=== PATIENT | male | born 1970 | race American Indian/Alaskan Native ===

== ENCOUNTER 2017-12-09 22:16 | Inpatient (IN) | payer SELFPAY ==
[2017-12-09] MEDS ORDERED: BOOSTRIX IM ONE (22:36)
[2017-12-09] MEDS ORDERED: KEPPRA 1,000 MG/NS 0.75% 100ML 1,000 MG/100 ML BAG IV ONE (22:36)
[2017-12-09] MEDS ORDERED: NACL 0.9% 1000 ML 2,000 ML IV ONE (22:36)
[2017-12-09 23:17] LABS: BUN/Creatinine Ratio 6; Blood Urea Nitrogen 5 mg/dL (9-20); Calcium 9.7 mg/dL (8.4-10.2); Hemolysis Index 1
[2017-12-09 23:20] LABS: Basophils % (Auto) 0.2 % (0.0-1.8); Hematocrit 36.3 % (35.5-45.6); Hemoglobin 12.9 gm/dl (11.8-15.2); Lymphocytes # (Auto) 0.4 K/mm3 (1.2-5.4); Lymphocytes % (Auto) 3.6 % (13.4-35.0); Mean Corpuscular HGB Conc 36 % (32-34); Mean Corpuscular Hemoglobin 34 pg (28-32); Mean Corpuscular Volume 96 fl (84-94); Monocytes # (Auto) 0.6 K/mm3 (0.0-0.8); Monocytes % (Auto) 6.2 % (0.0-7.3); Red Blood Count 3.78 M/mm3 (3.65-5.03); Red Cell Distribution Width 13.3 % (13.2-15.2)
--- NOTE | 2017-12-09 23:21 | Cat Scan Report ---
FINAL REPORT PROCEDURE: CT HEAD/BRAIN WO CON TECHNIQUE: Computerized tomography of the head was performed without contrast material. HISTORY: seizure COMPARISON: 01/07/2015 FINDINGS: Skull and scalp: Normal. Paranasal sinuses: Normal. Ventricles and subarachnoid spaces: Normal. Cerebrum: No evidence of hemorrhage, acute infarction or mass . Cerebellum and brainstem: No evidence of hemorrhage, acute infarction or mass. Vasculature: Normal. Comments: None. IMPRESSION: Normal Examination
[2017-12-09 23:27] LABS: Platelet Count 90 K/mm3 (140-440)
[2017-12-09] MEDS ORDERED: K-DUR PO ONE (23:32)
[2017-12-09] MEDS ORDERED: MAG-OX PO STA (23:32)
[2017-12-09] MEDS ORDERED: MAGNESIUM SULFATE 2GM/50ML 2 GM/50 ML BAG IV ONE (23:32)
--- NOTE | 2017-12-09 23:39 | Emergency Department Report ---
ED Seizure HPI - General Chief Complaint: Seizure Stated Complaint: SEIZURE Time Seen by Provider: 12/09/17 22:24 Source: patient, EMS (ems notes not available at time of chart dictation), RN notes reviewed, old records reviewed Mode of arrival: Stretcher Limitations: No Limitations - History of Present Illness Initial Comments: This is a 47-year-old male who is unknown to this provider previously. Has a history of seizure disorder, reports taking Keppra, 750 mg "every now and then. " He reports sporadic compliance with his antiepileptic drugs. He is brought to the hospital today by EMS for apparent seizure at a store. Prior to the seizure, patient indicates he had a mild throbbing headache, which was global, not sudden or thunderclap in nature, and did not reach maximal intensity within one hour. He believes that he bit his tongue. He reports his last seizure was 9 months ago. He denies neck pain, chest pain, abdominal pain, shortness of breath, urinary symptoms. Seizure was sudden, now resolved, did not radiate anywhere, thinks it was global tonic-clonic, and did not have exacerbating or relieving factors. MD Complaint: seizure, shaking, other (tongue biting) -: Sudden Description of Episode: loss of consciousness, tonic-clonic movement, post- event confusion -: second(s) Witnessed:: No Trauma: Yes Seizure History: known seizure disorder Place: street/outdoors Possible Precipitating Event: medication (non compliance) Associated Symptoms: confusion, malaise, tongue injury. denies: chest pain, cough, diaphoresis, fever/chills, loss of appetite, rash, shortness of breath, syncope, weakness, shoulder dislocation Treatments Prior to Arrival: other (ems notes not available at time of chart dictation) - Related Data Home Medications Medication Instructions Recorded Confirmed Last Taken Carvedilol [Coreg] 6.25 mg PO BID 03/09/16 12/09/17 Unknown levETIRAcetam [Keppra TAB] 500 mg PO BID 03/09/16 12/09/17 Unknown Previous Rx's Medication Instructions Recorded Last Taken Type Magnesium Oxide [Magnesium] 500 mg PO BID #10 capsule 12/09/17 Unknown Rx Potassium Chloride [K-Dur] 20 meq PO BID #10 tab 12/09/17 Unknown Rx levETIRAcetam [Keppra TAB] 750 mg PO BID #60 tablet 12/09/17 Unknown Rx Allergies Allergy/AdvReac Type Severity Reaction Status Date / Time No Known Allergies Allergy Verified 12/09/17 22:27 ED Review of Systems ROS: Stated complaint: SEIZURE Other details as noted in HPI Eyes: denies: eye discharge ENT: denies: hearing loss Respiratory: denies: wheezing Cardiovascular: denies: chest pain Genitourinary: denies: as per HPI, dysuria Musculoskeletal: arthralgia Skin: other (tongue bite) Neurological: headache Psychiatric: anxiety ED Past Medical Hx - Past Medical History Previous Medical History?: Yes Hx Hypertension: Yes Hx Diabetes: No Hx Pulmonary Embolism: No Hx GERD: No Hx Liver Disease: No Hx Sickle Cell Disease: No Hx Arthritis: No Hx Seizures: Yes (no meds) Hx Asthma: Yes Hx COPD: No Hx Tuberculosis: No Hx HIV: No - Surgical History Past Surgical History?: Yes Hx Open Heart Surgery: No Hx Cholecystectomy: No Hx Appendectomy: No Hx Breast Surgery: No Additional Surgical History: eye or - facial trauma, unsure of type of knee sx - Social History Smoking Status: Current Every Day Smoker Substance Use Type: Alcohol - Medications Home Medications: Home Medications Medication Instructions Recorded Confirmed Last Taken Type Carvedilol [Coreg] 6.25 mg PO BID 03/09/16 12/09/17 Unknown History levETIRAcetam [Keppra TAB] 500 mg PO BID 03/09/16 12/09/17 Unknown History Magnesium Oxide [Magnesium] 500 mg PO BID #10 capsule 12/09/17 Unknown Rx Potassium Chloride [K-Dur] 20 meq PO BID #10 tab 12/09/17 Unknown Rx levETIRAcetam [Keppra TAB] 750 mg PO BID #60 tablet 12/09/17 Unknown Rx ED Physical Exam - General Limitations: No Limitations General appearance: alert, anxious - Head Head exam: Present: normocephalic, other (there is a superficial contusion noted to the left forehead) - Eye Eye exam: Present: normal appearance, PERRL, EOMI, other (visual acuity intact to finger counting, color perception, reading at a close distance). Absent: nystagmus - ENT ENT exam: Present: normal exam (superficial tongue bites noted), mucous membranes moist, TM's normal bilaterally, normal external ear exam, other ( negative hemotympanum. Negative for nasal septal hematoma.) - Neck Neck exam: Present: normal inspection, full ROM. Absent: tenderness, meningismus - Respiratory Respiratory exam: Present: normal lung sounds bilaterally. Absent: respiratory distress - Cardiovascular Cardiovascular Exam: Present: normal rhythm, tachycardia, normal heart sounds. Absent: systolic murmur, diastolic murmur, rubs, gallop - GI/Abdominal GI/Abdominal exam: Present: soft, normal bowel sounds. Absent: distended, tenderness, guarding, rebound, rigid, pulsatile mass - Rectal Rectal exam: Present: deferred - Extremities Exam Extremities exam: Present: normal inspection, full ROM, normal capillary refill , other (2+ pulses noted in the bilateral upper, lower extremities. Compartments soft. No long bony tenderness. The pelvis is stable.). Absent: tenderness, pedal edema, joint swelling, calf tenderness - Back Exam Back exam: Present: normal inspection, full ROM. Absent: tenderness, CVA tenderness (R), paraspinal tenderness, vertebral tenderness - Neurological Exam Neurological exam: Present: alert, oriented X3, CN II-XII intact, other ( Extraocular movements intact. Tongue midline. No facial droop. Facial sensation intact to light touch in the V1, V2, V3 distribution bilaterally. 5 and 5 strength in 4 extremities.. Sensation is intact to light touch in 4 extremities.). Absent: motor sensory deficit - Psychiatric Psychiatric exam: Present: normal affect, normal mood - Skin Skin exam: Present: warm, dry, intact, normal color. Absent: rash ED Course Vital Signs 12/09/17 12/09/17 12/09/17 22:20 22:30 22:44 Temperature Pulse Rate 132 H 120 H 115 H Respiratory 26 H 29 H 22 Rate Blood Pressure Blood Pressure [Left] O2 Sat by Pulse 97 96 Oximetry 12/09/17 12/09/17 12/09/17 22:46 23:05 23:12 Temperature 99 F Pulse Rate 111 H 110 H Respiratory 28 H 16 Rate Blood Pressure 161/107 Blood Pressure 161/107 [Left] O2 Sat by Pulse 97 97 95 Oximetry 12/09/17 12/09/17 12/09/17 23:16 23:30 23:43 Temperature Pulse Rate Respiratory Rate Blood Pressure 161/107 165/112 Blood Pressure [Left] O2 Sat by Pulse 98 98 98 Oximetry 12/09/17 12/09/1712/10/18 23:46 23:50 00:00 Temperature Pulse Rate 137 H Respiratory 29 H Rate Blood Pressure 152/119 159/100 Blood Pressure [Left] O2 Sat by Pulse 98 99 98 Oximetry 12/10/17 12/10/17 12/10/17 00:16 00:30 00:46 Temperature Pulse Rate 103 H 109 H 117 H Respiratory 27 H 26 H 24 Rate Blood Pressure 177/117 177/117 177/117 Blood Pressure [Left] O2 Sat by Pulse 99 98 98 Oximetry 12/10/17 12/10/17 12/10/17 01:00 01:24 01:30 Temperature Pulse Rate 172 H 119 H 119 H Respiratory 22 20 16 Rate Blood Pressure 177/117 177/117 168/109 Blood Pressure [Left] O2 Sat by Pulse 97 98 Oximetry - Reevaluation(s) Reevaluation #1: 12/09/17 23:37 Differential diagnosis, including but not limited to: Dehydration, seizure, pseudoseizure, tongue bite, intracranial injury, concussion, electrolyte derangement Assessment and plan: 47-year-old male status post breakthrough seizure. He is tachycardic without tongue fasciculations, is noted to have mild thrombocytopenia. He denies DVT, pulmonary embolus risk factors, and he also indicates that he consumes alcohol sporadically. Laboratory studies show mild thrombocytopenia, hypokalemia, hypomagnesemia, anion gap acidosis. Patient will be treated empirically with Vince, IV fluids, magnesium and potassium supplementation. He is clinically sober at this time, with a [place] Coma Scale of 15. He is given a tetanus vaccination. Noncontrast CT scan of the brain was interpreted as negative. 12/09/17 23:39 Reevaluation #2: 12/10/17 01:36 Patient continues to remain tachycardic, laboratory studies continue to demonstrate anion gap acidosis. Patient is very tremulous and shaky, and now admits to consuming half a bottle of alcohol daily. He also has tongue fasciculations. Patient pulled out his IV, sat on the chair , and fell on floor, landing on his buttock. He did not hit his head. Patient clinically appears to be in alcohol withdrawal, and has required restraints for his safety. He will be started empirically on ciwa protocol. Hospital physician has been paged to arrange admission. Reevaluation #3: 12/10/17 01:40 Abnormal vital signs are reviewed and appreciated. Based on the current constellation of symptoms and presentation, even though the patient meets systemic inflammatory response syndrome criteria, his tachycardia and tachypnea , most likely secondary to alcohol withdrawal syndrome and not bacteremia. Therefore, he is best managed with supportive care, aggressive escalation of benzodiazepines; he would not benefit from broad-spectrum antibiotics, blood cultures, lactic acid, or 30 mL/kg bolus of IV fluid. Reevaluation #4: 12/10/17 02:00 Dr Tenorio accepts to the medical service for presumed alcohol withdrawal, anion gap acidosis, electrolyte derangement ED Medical Decision Making - Lab Data Result diagrams: 12/09/17 23:07 12/10/17 00:10 Vital Signs 12/09/17 23:12 Temperature 99 F Pulse Rate 110 H Respiratory 16 Rate Blood Pressure 161/107 [Left] O2 Sat by Pulse 95 Oximetry Lab Results 12/09/17 12/09/17 12/09/17 Range/Units 22:40 22:40 22:40 WBC (4.5-11.0) K/mm3 RBC (3.65-5.03) M/mm3 Hgb (11.8-15.2) gm/dl Hct (35.5-45.6) % MCV (84-94) fl MCH (28-32) pg MCHC (32-34) % RDW (13.2-15.2) % Plt Count (140-440) K/mm3 Lymph % (Auto) (13.4-35.0) % [place] % (Auto) (0.0-7.3) % Eos % (Auto) (0.0-4.3) % Baso % (Auto) (0.0-1.8) % Lymph # (1.2-5.4) K/mm3 [place] # (0.0-0.8) K/mm3 Eos # (0.0-0.4) K/mm3 Baso # (0.0-0.1) K/mm3 Seg Neutrophils % (40.0-70.0) % Seg Neutrophils # (1.8-7.7) K/mm3 Sodium 135 L (137-145) mmol/L Potassium 3.0 L (3.6-5.0) mmol/L Chloride 90.0 L (98-107) mmol/L Carbon Dioxide 22 (22-30) mmol/L Anion Gap 26 mmol/L BUN 5 L (9-20) mg/dL Creatinine 0.8 (0.8-1.5) mg/dL Estimated GFR > 60 ml/min BUN/Creatinine Ratio 6 % Glucose 170 H (75-100) mg/dL Calcium 9.7 (8.4-10.2) mg/dL Magnesium 1.50 L (1.7-2.3) mg/dL Total Creatine Kinase 859 H (55-170) units/L Salicylates < 0.3 L (2.8-20.0) mg/dL Acetaminophen (10.0-30.0) ug/mL Plasma/Serum Alcohol (0-0.07) % 12/09/17 12/09/17 12/09/17 Range/Units 22:40 22:40 23:07 WBC 10.0 (4.5-11.0) K/mm3 RBC 3.78 (3.65-5.03) M/mm3 Hgb 12.9 (11.8-15.2) gm/dl Hct 36.3 (35.5-45.6) % MCV 96 H (84-94) fl MCH 34 H (28-32) pg MCHC 36 H (32-34) % RDW 13.3 (13.2-15.2) % Plt Count 90 L (140-440) K/mm3 Lymph % (Auto) 3.6 L (13.4-35.0) % [place] % (Auto) 6.2 (0.0-7.3) % Eos % (Auto) 0.0 (0.0-4.3) % Baso % (Auto) 0.2 (0.0-1.8) % Lymph # 0.4 L (1.2-5.4) K/mm3 [place] # 0.6 (0.0-0.8) K/mm3 Eos # 0.0 (0.0-0.4) K/mm3 Baso # 0.0 (0.0-0.1) K/mm3 Seg Neutrophils % 90.0 H (40.0-70.0) % Seg Neutrophils # 9.0 H (1.8-7.7) K/mm3 Sodium (137-145) mmol/L Potassium (3.6-5.0) mmol/L Chloride (98-107) mmol/L Carbon Dioxide (22-30) mmol/L Anion Gap mmol/L BUN (9-20) mg/dL Creatinine (0.8-1.5) mg/dL Estimated GFR ml/min BUN/Creatinine Ratio % Glucose (75-100) mg/dL Calcium (8.4-10.2) mg/dL Magnesium (1.7-2.3) mg/dL Total Creatine Kinase (55-170) units/L Salicylates (2.8-20.0) mg/dL Acetaminophen < 5.0 L (10.0-30.0) ug/mL Plasma/Serum Alcohol < 0.01 (0-0.07) % - EKG Data -: EKG Interpreted by La Rate: tachycardia - EKG Data 12/10/17 01:39 Sinus tachycardia, 106 bpm, and normal axis, motion artifact, high left ventricular voltage, QTC prolonged, not a stemi - Radiology Data Radiology results: report reviewed, image reviewed Noncontrast CT scan of the brain is interpreted as negative. Critical care attestation.: If time is entered above; I have spent that time in minutes in the direct care of this critically ill patient, excluding procedure time. ED Disposition Clinical Impression: History of seizure, Hypokalemia, Hypomagnesemia, Thrombocytopenia Disposition: OP ADMIT IP TO THIS HOSP Is pt being admited?: Yes Does the pt Need Aspirin: No Condition: Good Instructions: Hypokalemia (ED), Recurrent Seizures Adult (ED), Thrombocytopenia (ED) Additional Instructions: Do not drive or operate motor vehicles for the next 6 months, or emesis cleared by either her primary care doctor or neurology specialist. Laboratory studies indicated multiple abnormalities, including decreased platelet count, decrease magnesium level, decreased potassium level. Take the magnesium, potassium supplementation as directed. Take the Keppra medication as directed. Noncompliance with Keppra therapy can result in breakthrough seizure, which in turn can result in disability, paralysis, loss of quality of life. Follow-up with a primary care doctor within the next 7-10 days for reevaluation of decreased platelet count, decreased potassium, decreased magnesium. Dr. Kenyon is a local primary care doctor. Alternatively, patient may follow up with the community education specialist, such as Dr. Zhong, within the next month for further evaluation of decreased platelet count. The meantime, avoid consumption of Motrin, ibuprofen, Naprosyn, Aleve, and minimize or eliminate alcohol consumption. Follow-up with the neurology specialist within the next month, such as either Dr. Siu, Dr. Huang, Dr Motley. Return to the ER right away with new pain, fevers, chills, projectile vomiting, change in mental status, recurrent seizure, inability to tolerate liquid feeds. Prescriptions: levETIRAcetam [Keppra TAB] 750 mg PO BID #60 tablet Magnesium Oxide [Magnesium] 500 mg PO BID #10 capsule Potassium Chloride [K-Dur] 20 meq PO BID #10 tab Referrals: PRIMARY CARE, [Primary Care Provider] - 3-5 Days JOSE KENYON MD [Staff Physician] - 3-5 Days ALBERT ZHONG MD [Staff Physician] - 3-5 Days MELVI MOTLEY MD [Referring] - 3-5 Days MARIA ANTONIA SIU MD [Staff Physician] - 3-5 Days WILMER HURTADO MD [Staff Physician] - 3-5 Days
[2017-12-10] MEDS ORDERED: ATIVAN IV ONE (00:06)
[2017-12-10 00:41] LABS: INR 0.95 (0.87-1.13)
[2017-12-10 00:47] LABS: BUN/Creatinine Ratio 6; Blood Urea Nitrogen 4 mg/dL (9-20); Calcium 9.3 mg/dL (8.4-10.2); Hemolysis Index 3
[2017-12-10] MEDS: KCL 10MEQ/100ML 10 MEQ/100 ML BAG IV SCH ×4 (00:48→04:31)
[2017-12-10 00:51] LABS: Albumin 4.8 g/dL (3.9-5); Bilirubin,Direct 0.9 mg/dL (0-0.2)
[2017-12-10] MEDS ORDERED: ATIVAN IV PRN (01:35)
[2017-12-10] MEDS ORDERED: LIBRIUM PO PRN (01:35)
[2017-12-10] MEDS: ATIVAN IV PRN ×2 (01:58→04:57)
[2017-12-10] MEDS ORDERED: ZOFRAN IV PRN (03:09)
[2017-12-10] MEDS ORDERED: TYLENOL PO PRN (03:11)
[2017-12-10] MEDS ORDERED: NACL 0.9% 1000 ML 1,000 ML IV SCH (04:00)
[2017-12-10] MEDS ORDERED: KCL 10MEQ/100ML 10 MEQ/100 ML BAG IV ONE (04:27)
[2017-12-10] MEDS: 1: FOLVITE 1 MG, INFUVITE 10 ML, VITAMIN B-1 100 MG in NACL 0.9% 1000 ML 988.8 ML 2: NA IV SCH ×2 (04:32→15:07)
--- NOTE | 2017-12-10 04:33 | History and Physical Report ---
CHIEF COMPLAINT: Seizure attack. HISTORY OF PRESENT ILLNESS: The patient is a 47-year-old male with history of seizure disorder, on Keppra, who is not compliant with his anti-seizure medication, who was brought in to the hospital by EMS after he had a seizure attack at the store. Prior to seizure attack, the patient was having headache, but denied history of chest pain, denied history of nausea and vomiting. There was also no history of shortness of breath. The ER report states that the patient bit his tongue because the patient is unable to give any information at this time. There is no history of fever, but the patient is known to be taking alcohol. PAST MEDICAL HISTORY: Pertinent for hypertension, seizure disorder, and asthma. PAST SURGICAL HISTORY: Pertinent for eye surgery, facial surgery, and knee surgery. FAMILY HISTORY: Noncontributory. SOCIAL HISTORY: The patient smokes cigarettes, drinks alcohol, and there is no history of illicit drug use. MEDICATIONS: The patient is on carvedilol 6.25 mg by mouth twice daily, Keppra 500 mg by mouth twice daily, magnesium oxide 500 mg by mouth twice daily, potassium chloride, K-Dur 20 mEq by mouth twice daily. ALLERGIES: There are no known drug allergies. REVIEW OF SYSTEMS CONSTITUTIONAL: He has no fever, no chills, no diaphoresis. HEENT: There is headache, but no sore throat. CARDIOVASCULAR SYSTEM: There is no chest pain or orthopnea. RESPIRATORY SYSTEM: There is no shortness of breath or cough. GASTROINTESTINAL SYSTEM: There is no nausea, no vomiting, no abdominal pain, diarrhea or constipation. NEUROLOGICAL SYSTEM: Seizure attack noted, change in mental status noted. MUSCULOSKELETAL SYSTEM: There is no joint pain or swelling. DERMATOLOGICAL SYSTEM: There is no skin rash or itching. GENITOURINARY SYSTEM: There is no dysuria, hematuria or flank pain. Rest of system review is normal. PHYSICAL EXAMINATION: GENERAL: At the time of exam, the patient was sedated, unable to give information, and not in acute distress. VITAL SIGNS: At the initial time of presentation shows normal temperature with pulse of 120, respirations 29, with blood pressure of about 161/107, with O2 sat of 97% on room air. HEENT: Show pupils to be equal, round, and reactive to light and accommodation. NECK: Supple with no JVD or carotid bruit. CARDIOVASCULAR SYSTEM: Show normal first and second heart sounds with rapid rate, with no gallops or murmurs were elicited. RESPIRATORY SYSTEM: Show good air entry on both sides of the lungs with no abnormal breath sounds. GASTROINTESTINAL SYSTEM: Show abdomen to be full, soft, and nontender with no organomegaly or rigidity. NEUROLOGIC: Exam shows no focal deficit. MUSCULOSKELETAL SYSTEM: Show no joint tenderness or swelling. DERMATOLOGICAL SYSTEM: Show no skin rash. GENITOURINARY SYSTEM: Show no costovertebral angle tenderness. PERTINENT LABORATORY AND IMAGING STUDIES: The patient has CBC done with normal white count, normal hemoglobin, and normal hematocrit with CBC differential showing elevated segmented neutrophil of 90%. Coagulation studies were unremarkable. Chemistry showed low sodium of 135, low potassium 3.0, and low chloride of 90, with unremarkable renal function result. Magnesium level was low with a value of 1.5. The patient's total CPK was high with a value of 859, toxicology screen shows low salicylate level and low acetaminophen as well as low alcohol level. IMAGING STUDIES: The patient had CT of the head without contrast done that show normal result. DIAGNOSES: 1. Seizure disorder. 2. Alcohol withdrawal syndrome. 3. Electrolyte imbalance, with low potassium and low magnesium. PLAN OF ACTION: 1. The patient will be admitted to telemetry and will continue the CIWA protocol, started in the Emergency Room. The patient will have intravenous banana bag, one bag daily, which will be followed by intravenous normal saline running at 125 mL an hour. The patient will have Neurology consult with Dr. Tellez in the morning. 2. The patient will be on Tylenol 650 mg by mouth every 4 hours as needed for headache and fever. 3. The patient will be on intravenous Zofran 4 mg every 8 hours for nausea and vomiting. 4. The patient will have basic metabolic panel and magnesium checked this morning at around 6 before noon. 5. The patient will have his home medication started as shown in the medication reconciliation section and this will include Keppra 500 mg by mouth twice daily, carvedilol 125 mg by mouth twice daily. The patient will be on intravenous lorazepam 2 mg every 2 hours as needed for seizure attack. 6. The patient will be on oxygen by nasal cannula at 2 liters per minute. 7. Deep venous thrombosis prophylaxis will be through heparin 5000 units subcutaneous every 12 and sequential compressive device. JOB# [id number] [facility]/ANNY GLASS
[2017-12-10] MEDS ORDERED: NORMODYNE IV ONE ×2 (04:49→04:50)
[2017-12-10] MEDS ORDERED: ATIVAN ONE (04:49)
[2017-12-10] MEDS ORDERED: APRESOLINE IV PRN (04:50)
[2017-12-10 08:33] LABS: BUN/Creatinine Ratio 5; Blood Urea Nitrogen 3 mg/dL (9-20); Hemolysis Index 2
--- NOTE | 2017-12-10 12:27 | Progress Note ---
Assessment and Plan Assessment and plan: Seizure disorder. Patient reports medical noncompliance. Continue Keppra. Alcohol withdrawal syndrome. Continue CIWA protocol. Hypokalemia. Resolved. Replete potassium as needed. Hypomagnesemia. Resolved. Replete magnesium as needed. Mild rhabdomyolysis. Recheck CK level. Etiology secondary to #1. History Interval history: No new issues overnight Hospitalist Physical - Constitutional Vitals: Temp Pulse Resp BP Pulse Ox 99.1 F 115 H 18 138/105 99 12/10/17 08:16 12/10/17 08:16 12/10/17 08:16 12/10/17 08:16 12/10/17 08:16 General appearance: Present: no acute distress, well-nourished - EENT Eyes: Present: PERRL, EOM intact ENT: hearing intact, clear oral mucosa, dentition normal - Neck Neck: Present: supple, normal ROM - Respiratory Respiratory effort: normal Respiratory: bilateral: CTA - Cardiovascular Rhythm: regular Heart Sounds: Present: S1 & S2. Absent: gallop, rub - Extremities Extremities: no ischemia, No edema, Full ROM - Abdominal General gastrointestinal: soft, non-tender, non-distended, normal bowel sounds - Integumentary Integumentary: Present: clear, warm, dry - Neurologic Neurologic: CNII-XII intact, moves all extremities Results - Labs CBC & Chem 7: 12/09/17 23:07 12/10/17 07:33 Labs: Laboratory Last Values WBC 10.0 K/mm3 (4.5-11.0) 12/09/17 23:07 RBC 3.78 M/mm3 (3.65-5.03) 12/09/17 23:07 Hgb 12.9 gm/dl (11.8-15.2) 12/09/17 23:07 Hct 36.3 % (35.5-45.6) 12/09/17 23:07 MCV 96 fl (84-94) H 12/09/17 23:07 MCH 34 pg (28-32) H 12/09/17 23:07 MCHC 36 % (32-34) H 12/09/17 23:07 RDW 13.3 % (13.2-15.2) 12/09/17 23:07 Plt Count 90 K/mm3 (140-440) L 12/09/17 23:07 Lymph % (Auto) 3.6 % (13.4-35.0) L 12/09/17 23:07 [place] % (Auto) 6.2 % (0.0-7.3) 12/09/17 23:07 Eos % (Auto) 0.0 % (0.0-4.3) 12/09/17 23:07 Baso % (Auto) 0.2 % (0.0-1.8) 12/09/17 23:07 Lymph # 0.4 K/mm3 (1.2-5.4) L 12/09/17 23:07 [place] # 0.6 K/mm3 (0.0-0.8) 12/09/17 23:07 Eos # 0.0 K/mm3 (0.0-0.4) 12/09/17 23:07 Baso # 0.0 K/mm3 (0.0-0.1) 12/09/17 23:07 Seg Neutrophils % 90.0 % (40.0-70.0) H 12/09/17 23:07 Seg Neutrophils # 9.0 K/mm3 (1.8-7.7) H 12/09/17 23:07 PT 13.1 Sec. (12.2-14.9) 12/10/17 00:10 INR 0.95 (0.87-1.13) 12/10/17 00:10 Sodium 140 mmol/L (137-145) 12/10/17 07:33 Potassium 3.7 mmol/L (3.6-5.0) D 12/10/17 07:33 Chloride 97.3 mmol/L (98-107) L 12/10/17 07:33 Carbon Dioxide 24 mmol/L (22-30) 12/10/17 07:33 Anion Gap 22 mmol/L 12/10/17 07:33 BUN 3 mg/dL (9-20) L 12/10/17 07:33 Creatinine 0.6 mg/dL (0.8-1.5) L 12/10/17 07:33 Estimated GFR > 60 ml/min 12/10/17 07:33 BUN/Creatinine Ratio 5 % 12/10/17 07:33 Glucose 104 mg/dL (75-100) H 12/10/17 07:33 Calcium 9.0 mg/dL (8.4-10.2) 12/10/17 07:33 Magnesium 1.90 mg/dL (1.7-2.3) 12/10/17 07:33 Total Bilirubin 2.20 mg/dL (0.1-1.2) H 12/10/17 00:10 Direct Bilirubin 0.9 mg/dL (0-0.2) H 12/10/17 00:10 Indirect Bilirubin 1.3 mg/dL 12/10/17 00:10 AST 145 units/L (5-40) H 12/10/17 00:10 ALT 56 units/L (7-56) 12/10/17 00:10 Alkaline Phosphatase 148 units/L (35-129) H 12/10/17 00:10 Total Creatine Kinase 859 units/L (55-170) H 12/09/17 22:40 Total Protein 7.2 g/dL (6.3-8.2) 12/10/17 00:10 Albumin 4.8 g/dL (3.9-5) 12/10/17 00:10 Albumin/Globulin Ratio 2.0 % 12/10/17 00:10 Salicylates < 0.3 mg/dL (2.8-20.0) L 12/09/17 22:40 Acetaminophen < 5.0 ug/mL (10.0-30.0) L 12/09/17 22:40 Plasma/Serum Alcohol < 0.01 % (0-0.07) 12/09/17 22:40
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
[2017-12-10] MEDS: KEPPRA PO SCH ×2 (15:05→21:44)
[2017-12-10] MEDS: COREG PO SCH ×2 (15:06→21:43)
[2017-12-10] MEDS: HEPARIN SUB-Q SCH ×2 (15:07→21:44)
[2017-12-11] MEDS: 1: FOLVITE 1 MG, INFUVITE 10 ML, VITAMIN B-1 100 MG in NACL 0.9% 1000 ML 988.8 ML 2: NA IV SCH (06:03)
--- NOTE | 2017-12-11 09:22 | Discharge Summary ---
Providers - Providers Date of Admission: 12/10/17 02:55 Date of discharge: 12/11/17 Attending physician: JULEE CARRILLO 12/10/17 06:00 Consult to Physician [CONS] Routine Comment: Consulting Provider: MOLLY ARCOS Physician Instructions: Reason For Exam: SEIZURE Primary care physician: DRUGLESS DOCTOR Hospitalization Reason for admission: sz Condition: Good Hospital course: 47-year-old male presented to the emergency department with diagnosis of seizure disorder and alcohol withdrawal syndrome. Patient reportedly was noncompliant with his medication Keppra. Patient had a CT scan of the head was found to be negative. EEG has been ordered and is pending and can be followed up with neurology as an outpatient. Neurology saw the patient in consultation and recommended continuing Keppra. Patient has had no further seizure activity during hospitalization and is felt to have received maximal hospital benefit for discharge. Dedicated discharge time 31 minutes. Disposition: [id number]-01 TO HOME OR SELFCARE Time spent for discharge: 31 - Discharge Diagnoses (1) Alcohol withdrawal Status: Acute (2) History of seizure Status: Acute (3) Uncontrolled hypertension Status: Chronic Comment: discharge on Losartan 100 mg po qd Core Measure Documentation - Palliative Care Palliative Care/ Comfort Measures: Not Applicable - Core Measures Any of the following diagnoses?: none Exam - Constitutional Vitals: Temp Pulse Resp BP Pulse Ox 99.0 F 98 H 18 143/97 98 12/11/17 08:06 12/11/17 08:06 12/11/17 08:06 12/11/17 08:06 12/11/17 08:27 General appearance: Present: no acute distress, well-nourished - EENT Eyes: Present: PERRL ENT: hearing intact, clear oral mucosa - Neck Neck: Present: supple, normal ROM - Respiratory Respiratory effort: normal Respiratory: bilateral: CTA - Cardiovascular Heart Sounds: Present: S1 & S2. Absent: rub, click - Extremities Extremities: pulses symmetrical, No edema Peripheral Pulses: within normal limits - Abdominal General gastrointestinal: Present: soft, non-tender, non-distended, normal bowel sounds Male genitourinary: Present: normal - Integumentary Integumentary: Present: clear, warm, dry - Musculoskeletal Musculoskeletal: gait normal, strength equal bilaterally - Psychiatric Psychiatric: appropriate mood/affect, intact judgment & insight - Neurologic Neurologic: CNII-XII intact, moves all extremities Plan Activity: no restrictions Weight Bearing Status: Full Weight Bearing Diet: regular Follow up with: MARIA ANTONIA SIU MD [Staff Physician] - 3-5 Days ALBERT GAN MD [Staff Physician] - 3-5 Days MELVI MOTLEY MD [Referring] - 3-5 Days WILMER HURTADO MD [Staff Physician] - 3-5 Days [facility], [Primary Care Provider] - 3-5 Days JOSE KENYON MD [Staff Physician] - 3-5 Days Prescriptions: Carvedilol [Coreg] 6.25 mg PO BID #60 tablet levETIRAcetam [Keppra] 750 mg PO BID #60 tablet levETIRAcetam [Keppra TAB] 750 mg PO BID #60 tablet Magnesium Oxide [Magnesium] 500 mg PO BID #10 capsule Potassium Chloride [K-Dur] 20 meq PO BID #10 tab
[2017-12-11] MEDS: COREG PO SCH (10:51)
[2017-12-11] MEDS: KEPPRA PO SCH (10:51)
[2017-12-11] MEDS: HEPARIN SUB-Q SCH (10:52)
[2017-12-11 17:52] VITALS: BP 146/92
== END 2017-12-11 19:56 | disposition home or self-care (01) | DRG 101 ==
LOC: ED 22:16 → 4A 12-10 02:55
PROVIDERS: ADMIT Internal Medicine; ATTEND Hospitalist
DX: G40.509 Epileptic seizures related to external causes, not intractable, without status epilepticus (principal); F10.239 Alcohol dependence with withdrawal, unspecified; E87.2 Acidosis; M62.82 Rhabdomyolysis; E87.6 Hypokalemia; I10 Essential (primary) hypertension; J45.909 Unspecified asthma, uncomplicated; F17.200 Nicotine dependence, unspecified, uncomplicated; D69.6 Thrombocytopenia, unspecified; E83.42 Hypomagnesemia; Y90.9 Presence of alcohol in blood, level not specified; Z91.19 Patient's noncompliance with other medical treatment and regimen
CPT/HCPCS: 36415; 70450; 80048; 80074; 80320; 82550; 83735; 85025; 85610; 90471; 90715; 93005; 93010; 96365; 96366; G0480; J1644; J1953; J2060; J3411; J3475; J3480; J7030